=== PATIENT | male | born 1955 | race Asian ===

== ENCOUNTER 2019-03-27 09:50 | Emergency (ER) | payer MEDICAID ==
[~2019-03-27] VITALS: Ht 167.6 cm; Wt 76.2 kg
[2019-03-27 10:11] VITALS: BP_SYST 135
--- NOTE | 2019-03-27 10:36 | NUR ---
Patient to ER bed 4 to gown for evaluation. Side rails up. Report given to CYNTHIA Santamaria.
--- NOTE | 2019-03-27 10:45 | NUR ---
pt arrives from home w/ c/o facial, neck, and BUE rash. pt states that he takes Prednisone, however, currently ran out of the medication
--- NOTE | 2019-03-27 11:38 | NUR ---
ER at bedside examining patient.
[2019-03-27] MEDS ORDERED: DEXAMETHASONE SOD PHOSPHATE 10 MG/ML VIAL IM ONE (11:45)
--- NOTE | 2019-03-27 12:00 | NUR ---
pt reports feeling better
--- NOTE | 2019-03-27 13:45 | NUR ---
Patient given written and verbal discharge instructions and verbalizes understanding. ER MD discussed with patient the results and treatment provided. Patient in stable condition. ID arm band removed. Rx of given. Patient educated on pain management and to follow up with PMD. Pain Scale 0/10.Opportunity for questions provided and answered. Medication side effect fact sheet provided.
[2019-03-27 13:46] VITALS: BP_SYST 135
== END 2019-03-27 13:45 | disposition home or self-care (01) ==
LOC: SED 09:50
DX: R21 Rash and other nonspecific skin eruption (principal); R05 Cough; Z91.013 Allergy to seafood
CPT/HCPCS: 71046; 96372; 99283; J1100

== ENCOUNTER 2019-10-11 14:51 | Emergency (ER) | payer OTHER, MEDICAID ==
[~2019-10-11] VITALS: Ht 167.6 cm; Wt 77.1 kg
[2019-10-11 15:03] VITALS: BP_SYST 114
--- NOTE | 2019-10-11 15:03 | NUR ---
ER in triage examining patient.
--- NOTE | 2019-10-11 15:09 | NUR ---
Patient triaged and placed in waiting room. VSS and patient appears in no acute distress at this time. Awaiting available bed, and MD notified of need for MSE.
[2019-10-11 16:24] LABS: BASOPHILS # (AUTO) 0.1 K/uL (0.0-0.2); BASOPHILS % (AUTO) 0.7 % (0.0-2.0); EOSINOPHILS # (AUTO) 0.8 K/uL (0.0-0.4); EOSINOPHILS % (AUTO) 8.7 % (0.0-4.0); HEMATOCRIT 33.9 % (36-54); HEMOGLOBIN 10.9 g/dL (14.0-18.0); LYMPHOCYTES # (AUTO) 0.8 K/uL (1.0-5.5); LYMPHOCYTES % (AUTO) 8.5 % (20.5-51.5); MEAN CORPUSCULAR HEMOGLOBIN 27 pg (27-31); MEAN CORPUSCULAR HGB CONC 32 % (32-36); MEAN CORPUSCULAR VOLUME 86 fL (79.0-98.0); MONOCYTES # (AUTO) 0.8 K/uL (0.0-1.0); MONOCYTES % (AUTO) 8.9 % (1.7-9.3); NEUTROPHILS # (AUTO) 6.8 K/uL (1.8-7.7); NEUTROPHILS % (AUTO) 73.2 % (40.0-70.0); PLATELET COUNT (AUTO) 462 K/uL (130-430); RED BLOOD CELL COUNT(AUTO) 3.96 MIL/uL (4.2-6.2); RED CELL DISTRIBUTION WIDTH 14.5 % (9.0-15.0); WHITE BLOOD COUNT (AUTO) 9.3 K/uL (4.8-10.8)
[2019-10-11 16:33] LABS: CALCIUM 10.1 mg/dL (8.4-11.0); CREATININE 1.15 mg/dL (0.55-1.30); POTASSIUM 3.5 mmol/L (3.5-5.1)
[2019-10-11 16:37] LABS: ALBUMIN 2.9 g/dL (3.4-4.8); C-REACTIVE PROTEIN QUANT 7.4 mg/dL (0-0.5); TOTAL BILIRUBIN 0.2 mg/dL (0.0-1.0)
[2019-10-11 16:40] LABS: PROTHROMBIN TIME 10.3 SECS (9.5-12.5)
[2019-10-11 18:46] LABS: ERYTHROCYTE SEDIMENTATION RATE 86 MM/HR (0-15)
[2019-10-11 19:36] VITALS: BP_SYST 118
--- NOTE | 2019-10-11 19:36 | NUR ---
Patient given written and verbal discharge instructions and verbalizes understanding. ER MD discussed with patient the results and treatment provided. Patient in stable condition. ID arm band removed. Rx of MOTRIN AND NORCO given. Patient educated on pain management and to follow up with PMD. Pain Scale 0/10 Opportunity for questions provided and answered. Medication side effect fact sheet provided.
== END 2019-10-11 19:36 | disposition home or self-care (01) ==
LOC: SED 14:51
DX: M79.18 Myalgia, other site (principal); I10 Essential (primary) hypertension; E11.9 Type 2 diabetes mellitus without complications; E78.5 Hyperlipidemia, unspecified
CPT/HCPCS: 36415; 80053; 82550-TC; 85025; 85610-TC; 85651-TC; 85730-TC; 86140; 99283